=== PATIENT | male | born 1970 | race Hispanic/Latino ===

== ENCOUNTER 2021-04-14 07:29 | Day surgery (SDC) | payer OTHER ==
[2021-04-12 11:00] VITALS: BP_SYST 150; BP_SYST 177; BP_DIAS 73; BP_DIAS 77
[~2021-04-14] VITALS: Ht 170.2 cm; Wt 140.1 kg
[2021-04-14] VITALS (16 sets, daily range): BP systolic 127–165; BP diastolic 60–82
[~2021-04-14 07:29] MED LIST: ACET-66 PO; ASCO500T10 PO; ATOR-2 PO; BUPR150T8 PO; CARB-283 OU; CHLO25TA3 PO; CHOL200013 PO; DICL100G27 TP; ENAL20TA18 PO; FLUT16H NS; IBUP-2070 PO; KETO15CR2 TP; LORA10TA7 PO; MAGN400T8 PO; METF-446 PO; MONT10TA32 PO; OMEP20TA25 PO; PIOG30TA70 PO; lidocaine patch TD; menthol/m-salicylate TP
[2021-04-14] MEDS ORDERED: 0.9%NACL 1000ML 1,000 ML IV ONE (08:38)
[2021-04-14] MEDS: CEFAZOLIN SODIUM 1 GM VIAL ONE ×2 (09:06→10:55)
[2021-04-14] MEDS ORDERED: LIDOCAINE PF 100MG/5ML (2%) SYRINGE 5ML ONE (10:28)
[2021-04-14] MEDS ORDERED: PROPOFOL 10 MG/ML 20ML VIAL IV ONE (10:28)
[2021-04-14] MEDS ORDERED: MIDAZOLAM HCL 1 MG/ML 2ML VIAL ONE (10:28)
[2021-04-14] MEDS ORDERED: SUCCINYLCHOLINE CHLORIDE 20 MG/ML 10 ML VIAL ONE (10:28)
[2021-04-14] MEDS ORDERED: ROCURONIUM 10MG/1ML SYR 10 MG/ML ML ONE (10:29)
[2021-04-14] MEDS ORDERED: FENTANYL CITRATE PF 50 MCG/1 ML 2ML VIAL ONE ×2 (10:29→11:32)
[2021-04-14] MEDS ORDERED: GLYCOPYRROLATE 1 MG/5 ML SYRINGE ONE (11:26)
[2021-04-14] MEDS ORDERED: NEOSTIGMINE 5MG/5ML SYR IV ONE (11:26)
[2021-04-14] MEDS ORDERED: ONDANSETRON 4MG INJ ONE (11:27)
[2021-04-14] MEDS ORDERED: MEPERIDINE-PF 25 MG/ML SYG ONE (12:27)
[2021-04-14] MEDS ORDERED: ACET1TAB25 PO (12:30)
[2021-04-14] MEDS ORDERED: CEPH500B PO (12:30)
== END 2021-04-14 13:25 | disposition home or self-care (01) ==
LOC: DAH 07:29
PROVIDERS: ATTEND Orthopaedic Surgery
DX: S83.232A Complex tear of medial meniscus, current injury, left knee, initial encounter (principal); Z20.822 Contact with and (suspected) exposure to COVID-19; M94.262 Chondromalacia, left knee; G47.30 Sleep apnea, unspecified; I10 Essential (primary) hypertension; E78.5 Hyperlipidemia, unspecified; E11.9 Type 2 diabetes mellitus without complications; K21.9 Gastro-esophageal reflux disease without esophagitis; E66.9 Obesity, unspecified; Z82.49 Family history of ischemic heart disease and other diseases of the circulatory system; Z83.3 Family history of diabetes mellitus; Z87.891 Personal history of nicotine dependence; Z68.42 Body mass index [BMI] 45.0-49.9, adult; X58.XXXA Exposure to other specified factors, initial encounter; Y93.89 Activity, other specified; Y92.89 Other specified places as the place of occurrence of the external cause
CPT/HCPCS: 29881; 82948 ×2; 87635; A4215; A4221; A4222; A4223; A4606; A4649 ×2; A4663; A4930 ×2; A6223; C9803; J0330; J0690; J2001; J2175; J2250; J2405; J2704; J2710; J3010 ×2; J3490; J7030 ×2

== ENCOUNTER 2021-06-30 20:31 | Emergency (ER) | payer OTHER ==
[~2021-06-30] VITALS: Ht 172.7 cm; Wt 137.9 kg
[~2021-06-30 20:31] MED LIST changes: +ACET1TAB25 PO; +CEPH500B PO
[2021-06-30 20:48] VITALS: BP 159/97
[2021-06-30] MEDS ORDERED: KETOROLAC 60 MG VIAL (30MG/ML) IM STA (21:03)
[2021-06-30] MEDS ORDERED: MORPHINE 4 MG SYG IM STA (21:03)
[2021-06-30 21:28] LABS: APPEARANCE,URINE Clear (CLEAR); BILIRUBIN,URINE Negative (NEGATIVE); COLOR,URINE Yellow (YELLOW); GLUCOSE, URINE (UA) Negative (NEGATIVE); KETONES,URINE Negative (NEGATIVE); LEUKOCYTE ESTERASE ,URINE Negative (NEGATIVE); NITRATE,URINE Negative (NEGATIVE); OCCULT BLOOD,URINE Negative (NEGATIVE); PH,URINE 6.5 (5.0-8.0); PROTEIN,URINE Negative (NEGATIVE)
[2021-06-30] MEDS ORDERED: ACET1TAB25 PO (22:10)
[2021-06-30] MEDS ORDERED: CARI350T PO (22:10)
== END 2021-06-30 22:40 | disposition home or self-care (01) ==
LOC: EDH 20:31
DX: S40.011A Contusion of right shoulder, initial encounter (principal); M54.5 Low back pain; G89.29 Other chronic pain; Z79.899 Other long term (current) drug therapy; Z79.84 Long term (current) use of oral hypoglycemic drugs; Z98.890 Other specified postprocedural states; V49.69XA Unspecified car occupant injured in collision with other motor vehicles in traffic accident, initial encounter; Y93.89 Activity, other specified; Y92.481 Parking lot as the place of occurrence of the external cause; Y99.8 Other external cause status
CPT/HCPCS: 73030; 81003; 96372 ×2; 99284; J1885; J2270

== ENCOUNTER 2022-02-13 06:26 | Day surgery (SDC) | payer OTHER ==
[2022-02-10 11:15] LABS: CREATININE 0.9 mg/dL (0.5-1.5); POTASSIUM 4.4 mmol/L (3.5-5.1)
[2022-02-10 11:22] LABS: BASOPHILS % (AUTO) 0.5 % (0.0-5.0); EOSINOPHILS % (AUTO) 4.9 % (0.0-8.0); HEMATOCRIT 38.2 % (42-54); MEAN CORPUSCULAR HEMOGLOBIN 27.6 pg (27.0-33.0); MEAN CORPUSCULAR HGB CONC 33.2 g/dL (32.0-36.0); MONOCYTES % (AUTO) 7.5 % (3.0-13.0); NEUTROPHILS % (AUTO) 60.4 % (40.0-77.0); PLATELET COUNT (AUTO) 294 K/uL (130-400); RED CELL DISTRIBUTION WIDTH 13.2 % (11.0-15.5); WHITE BLOOD COUNT (AUTO) 9.4 K/uL (4.8-10.8)
[2022-02-10 12:13] VITALS: BP 156/71
[2022-02-13] VITALS (17 sets, daily range): BP systolic 102–148; BP diastolic 44–80
[~2022-02-13] VITALS: Ht 170.2 cm; Wt 143.0 kg
[~2022-02-13 06:26] MED LIST changes: -ACET1TAB25 PO; +BUPR-113 PO; -BUPR150T8 PO; -CARB-283 OU; -CEPH500B PO; -DICL100G27 TP; -FLUT16H NS; -KETO15CR2 TP; +MAGN400T56 PO; -MAGN400T8 PO; +MONT-39 PO; -MONT10TA32 PO; +OMEP20TA20 PO; -OMEP20TA25 PO; -lidocaine patch TD; -menthol/m-salicylate TP
[2022-02-13] MEDS ORDERED: 0.9%NACL 1000ML 1,000 ML IV ONE (06:42)
[2022-02-13] MEDS ORDERED: CEFAZOLIN SODIUM 1 GM VIAL ONE ×2 (06:45→10:22)
[2022-02-13] MEDS ORDERED: EPINEPHRINE 1 MG/ML 30ML VIAL IJ ONE (07:32)
[2022-02-13] MEDS ORDERED: GLYCOPYRROLATE 1 MG/5 ML SYRINGE ONE (08:48)
[2022-02-13] MEDS ORDERED: LIDOCAINE PF 100MG/5ML (2%) SYRINGE 5ML ONE (08:48)
[2022-02-13] MEDS ORDERED: SUCCINYLCHOLINE CHLORIDE 20 MG/ML 10 ML VIAL ONE (08:48)
[2022-02-13] MEDS ORDERED: ONDANSETRON 4MG INJ ONE (08:49)
[2022-02-13] MEDS ORDERED: FENTANYL CITRATE PF 50 MCG/1 ML 2ML VIAL ONE ×2 (08:49→11:15)
[2022-02-13] MEDS ORDERED: ROCURONIUM 10MG/1ML SYR 10 MG/ML ML ONE (08:49)
[2022-02-13] MEDS ORDERED: PROPOFOL 10 MG/ML 20ML VIAL IV ONE ×2 (08:49→10:38)
[2022-02-13] MEDS ORDERED: ROPIVACAINE 0.5% 5MG/ML 30ML IJ ONE (08:49)
[2022-02-13] MEDS ORDERED: NEOSTIGMINE 5MG/5ML SYR IV ONE (08:49)
[2022-02-13] MEDS ORDERED: MIDAZOLAM HCL 1 MG/ML 2ML VIAL ONE (08:49)
[2022-02-13] MEDS ORDERED: EPHEDRINE SULFATE 50 MG/ML AMPULE ONE (10:38)
[2022-02-13] MEDS ORDERED: PHENYLEPHRINE HCL 10 MG/ML 1ML VIAL IV ONE ×2 (11:12→11:44)
[2022-02-13] MEDS ORDERED: HYDR-4060 PO (11:46)
[2022-02-13] MEDS ORDERED: CEPH500B PO (11:46)
[2022-02-13] MEDS ORDERED: IBUP-2070 PO (11:46)
[2022-02-13] MEDS ORDERED: MEPERIDINE-PF 25 MG/ML SYG ONE (12:37)
== END 2022-02-13 13:45 | disposition home or self-care (01) ==
LOC: DAH 06:26
PROVIDERS: ATTEND Orthopaedic Surgery
DX: M75.121 Complete rotator cuff tear or rupture of right shoulder, not specified as traumatic (principal); M75.81 Other shoulder lesions, right shoulder; M25.811 Other specified joint disorders, right shoulder; I10 Essential (primary) hypertension; E11.9 Type 2 diabetes mellitus without complications; E66.01 Morbid (severe) obesity due to excess calories; K21.9 Gastro-esophageal reflux disease without esophagitis; G47.30 Sleep apnea, unspecified; Z87.891 Personal history of nicotine dependence; Z98.890 Other specified postprocedural states; Z87.39 Personal history of other diseases of the musculoskeletal system and connective tissue; Z83.3 Family history of diabetes mellitus; Z82.49 Family history of ischemic heart disease and other diseases of the circulatory system; Z79.899 Other long term (current) drug therapy
CPT/HCPCS: 23120; 23412; 23430; 29822; 36415; 64415; 76942; 80048; 82948 ×2; 85025; 87635; A4215; A4221; A4222; A4223; A4565; A4649 ×3; A4663; A6204; C1713 ×4; C9803; G0168; J0171; J0330; J0690 ×2; J2001; J2175; J2250; J2370 ×2; J2405; J2704 ×2; J2710; J2795; J3010 ×2; J3490 ×2; J7030; J7120

== ENCOUNTER 2025-08-15 21:44 | Emergency (ER) | payer OTHER, MEDICARE ==
[~2025-08-15] VITALS: Ht 172.7 cm; Wt 137.4 kg
[~2025-08-15 21:44] MED LIST changes: +CEPH500B PO; +ENAL-91 PO; -ENAL20TA18 PO; +HYDR-4060 PO; +IBUP-1492 PO; -IBUP-2070 PO
--- NOTE | 2025-08-15 21:50 | NUR ---
COVID, FLU AND STREP SWABS COLLECTED AND SENT
[2025-08-15 22:08] LABS: RAPID GROUP A STREP negative (NEGATIVE)
[2025-08-15 22:12] LABS: SARS-CoV-2, RNA, NAAT NEGATIVE SARS CoV-2 (NEGATIVE)
[2025-08-15 22:18] LABS: INFLUENZA TYPE A Negative For Type A (NEGATIVE); INFLUENZA TYPE B Negative For Type B (NEGATIVE)
[2025-08-15 22:41] VITALS: PULSE 98; RESP 18
[2025-08-15 23:08] VITALS: BP 165/88; PULSE 98; RESP 18; TEMP 98.4; O2SAT 98
[2025-08-15] MEDS ORDERED: ALBUHFA IH (23:26)
[2025-08-15] MEDS ORDERED: AZIT250T9 PO (23:26)
--- NOTE | 2025-08-15 23:27 | ERN ---
General Chief Complaint: Cough Stated Complaint: COUGH Time Seen by MD: 21:54 Time Seen by Midlevel: 21:54 Source: patient History of Present Illness Initial Comments The patient is a 55-year-old male presenting to the emergency department for evaluation of cough. Patient reports having history of bronchitis and states that every year around this time with the weather changes his bronchitis flares up. He does use an inhaler at home but has been unable to find it. He specifically denies any fever, chills, or any other symptoms at this time. Allergies: Coded Allergies: No Known Drug Allergies (Unverified Allergy, Unknown, 04/13/21) Home Meds Active Scripts Cephalexin Monohydrate (Keflex) 500 Mg Cap, 500 MG PO Q8H, #7 CAP 0 Refills Prov:NICCI GONZALES MD 02/13/22 Hydrocodone/Acetaminophen (Hydrocodon-Acetaminophen 5-325) 1 Each Tablet, 1-2 EACH PO Q6HPRN PRN for ACUTE POST-OP PAIN (G89.18), #56 TAB 0 Refills Prov:NICCI GONZALES MD 02/13/22 Ibuprofen (Ibuprofen) 600 Mg Tablet, 600 MG PO o5txway PRN for PAIN, #60 TAB Prov:NICCI GONZALES MD 02/13/22 Reported Medications Acetaminophen (Tylenol) 500 Mg Tab, 1000 MG PO TID, TAB 04/13/21 Enalapril Maleate (Enalapril Maleate) 20 Mg Tablet, 20 MG PO AM, TAB 04/13/21 Cholecalciferol (Vitamin D3) (Vitamin D3) 50 Mcg Capsule, 50 MCG PO AM, CAP 04/13/21 Chlorthalidone (Chlorthalidone) 25 Mg Tablet, 25 MG PO AM, TAB 04/13/21 Bupropion HCl (Bupropion HCl Sr) 150 Mg Tablet.er, 150 MG PO BID, TAB 04/13/21 Atorvastatin Calcium (Atorvastatin Calcium) 80 Mg Tablet, 80 MG PO HS, TAB 04/13/21 Ascorbic Acid (Ascorbic Acid) 500 Mg Tablet, 500 MG PO TID, TAB 04/13/21 Pioglitazone HCl (Pioglitazone HCl) 30 Mg Tablet, 30 MG PO AM, TAB 04/13/21 Omeprazole (Omeprazole) 20 Mg Tablet.dr, 20 MG PO HS, TAB 04/13/21 Montelukast Sodium (Montelukast Sodium) 10 Mg Tablet, 10 MG PO HS, TAB 04/13/21 Metformin HCl (Metformin HCl) 1,000 Mg Tablet, 1000 MG PO BID, TAB 04/13/21 Magnesium Oxide (Magnesium Oxide) 400 Mg Tablet, 400 MG PO HS, TAB 04/13/21 Loratadine (Loratadine) 10 Mg Tablet, 10 MG PO HS, TAB 04/13/21 Past Medical History Past Medical History: Diabetes-Type II, Other Medical History Other: BAD BACK, RT SHOULDER ISSUE Past Surgical History: Other Surgical History Other: RT KNEE , RT SHOULDER ROS Dictation CONSTITUTIONAL: Negative except for HPI HEAD/FACE: Negative except for HPI EENT: Negative except for HPI RESPIRATORY: Negative except for HPI GASTROINTESTINAL/ABDOMINAL: Negative except for HPI GENITOURINARY: Negative except for HPI MUSCULOSKELETAL: Negative except for HPI INTEGUMENTARY: Negative except for HPI NEUROLOGICAL/PSYCH: Negative except for HPI HEMATOLOGIC/LYMPHATIC: Negative except for HPI All Systems Negative, Except as noted above. 13 point review of systems assessed and all negative except for above. Physical Exam Physical Exam Dictation Vital Signs reviewed General Appearance: Alert, oriented x 3, no acute distress, well developed, nourished. Head and Face: non-traumatic. Eyes: PERRL, pink conjunctivas, eyelid no trauma, anterior chamber with arcus senilis. Ears: Pinnas intact and no signs of trauma or erythema ear canals clear and no discharge TM no erythema Nose: No discharge, no bleeding. Oropharynx: Mouth normal, tongue pink, pharynx clear,no erythema, tonsils no exudates, no abscesses noted, mucous membrane moist Neck: Supple, non-tender, no thyromegaly, no masses, no JVD, no bruits Breast:Deferred Chest:No tenderness, no crepitus, no paradoxical movement, no retractions Lungs:Clear, well-ventilated, symmetric, no rales, no wheezing, no rhonchi, no stridor, good breath sounds bilaterally Heart: Regular rate, regular rhythm, no murmur, no gallops Vascular: no peripheral edema, Abdomen: Soft, positive bowel sounds, nondistended, no guarding, nontender, no rebound, no masses no hepatomegaly, no splenomegaly, no Roper's sign, no hernias. Rectal: Deferred Genital: Deferred Neurological: Normal speech, motor function intact, sensory function intact Musculoskeletal: Neck nontender, full range of motion, back nontender, full r jhony of motion, Extremities: nontender, full range of motion Skin: Color pink, dry, no turgor, no rash, no lacerations, no abrasions, no contusions. Lymphatic: Deferred Results Laboratory and Microbiology Lab and Micro Result Laboratory Tests Test 08/15/25 21:54 Influenza Type A Antigen Negative For Type A Influenza Type B Antigen Negative For Type B SARS-CoV-2, RNA, NAAT NEGATIVE SARS CoV-2 Group A Streptococcus Rapid negative (NEGATIVE) Labs Reviewed?: Yes MDM MDM: Differential diagnosis: Acute bronchitis, viral syndrome, pneumonia There are no social concerns with this patient. Prescription drug management Prescriptions will include: Azithromycin, albuterol inhaler Medical management and examination interpretation discussions were had by me with other qualified healthcare professionals as indicated for the patient's care. ED Course Orders Procedure Category Date Status Time Covid Rna Naat LAB 08/15/25 Complete 21:49 Influenza Type A & B, LAB 08/15/25 Complete Rapid 21:49 Rapid (Group A Strep) LAB 08/15/25 Complete 21:49 Chest 1vw RAD 08/15/25 Taken 22:20 Ipratropium/Albuterol PHA 08/15/25 Complete Neb (Duoneb) 22:30 Current Medications Medications (Trade) Dose Ordered Sig/Natalya Route PRN Reason Start Time Stop Time Status Last Admin Dose Admin Albuterol (DUOneb) 1 UDVIAL ONCE ONCE IH 08/15/25 22:30 08/15/25 22:31 DC 08/15/25 22:41 Vital Signs Date Time Temp Pulse Resp B/P (MAP) Pulse Ox O2 Delivery O2 Flow Rate FiO2 08/15/25 23:08 98.4 98 18 165/88 98 Room Air* 0 21 08/15/25 22:41 98 18 08/15/25 21:45 98.4 99 20 175/91 99 Room Air DX & DISP Disposition: Discharge Departure Impression: Primary Impression: Bronchitis Condition: Stable Scripts Azithromycin (Azithromycin) 250 Mg Tablet 1 TAB PO AD for 5 Days, #6 TAB 0 Refills 2 the first day followed by 1 for days 2-5 Prov: ESPINOZA CAMACHO PAC 08/15/25 Albuterol Sulfate (Ventolin Hfa/Proventil Hfa/Proair Hfa) 90 Mcg Puff 1 PUFF IH Q4H PRN for SHORTNESS OF BREATH for 5 Days, #1 INH 0 Refills PHARMACY TO DISPENSE 1 INHALER FOR USE Prov: ESPINOZA CAMACHO PAC 08/15/25 Additional Instructions: You have tested negative for influenza a, influenza B, and COVID-19. Your chest x-ray does not show any evidence of pneumonia. I have given you a prescription for your albuterol inhaler. I have also given you a prescription for azithromycin to help prevent an ammonia. Please follow up with your primary care doctor next week for repeat evaluation. If you develop any new or worsening symptoms please report to the ER for further evaluation. Referrals: CANDY TAI MD (PCP) Time of Disposition: 23:26 I have reviewed the case, and I agree with, Diagnosis and Plan I performed the substantive portion of the visit. I have reviewed and personally made and approve the management plan that is documented in the note by myself or the ROSANA. I acknowledge for responsibility for the patient's management plan. ESPINOZA CAMACHO PAC Aug 15, 2025 23:27
--- NOTE | 2025-08-16 01:01 | HMCIMG ---
EXAM: X-Ray Chest, 1 view. CLINICAL HISTORY: Cough. COMPARISON: None. FINDINGS: The lungs show no infiltrate or other acute findings. No pleural effusion or pneumothorax. The cardiomediastinal silhouette is within normal limits. No acute osseous abnormality. IMPRESSION: No acute cardiopulmonary pathology is evident. /Aiea
== END 2025-08-15 23:57 | disposition home or self-care (01) ==
LOC: EDH 21:44
DX: J40 Bronchitis, not specified as acute or chronic (principal); E11.9 Type 2 diabetes mellitus without complications; Z20.822 Contact with and (suspected) exposure to COVID-19; Z79.84 Long term (current) use of oral hypoglycemic drugs; Z79.899 Other long term (current) drug therapy
CPT/HCPCS: 71045; 87635; 87804; 87880; 94640; 99284